=== PATIENT | female | born 1990 | race Caucasian/White ===

== ENCOUNTER 2019-10-20 11:00 | Inpatient (IN) | payer OTHER ==
[2019-10-20] MEDS: ELECTROLYTE-148 SOLN 1,000 ML IV SCH ×2 (12:00→16:55)
[2019-10-20 12:25] LABS: BASO % 0.3 % (0-2.0); HEMATOCRIT 35.1 % (32.4-45.2); HEMOGLOBIN 11.9 GM/dL (10.7-15.3); LYMPH % 13.6 % (8-40); MCH 31.6 pg (25.7-33.7); MCHC 33.9 g/dl (32.0-36.0); MEAN CELL VOLUME 93.2 fl (80-96); MEAN PLT VOLUME 9.4 fl (7.5-11.1); MONO % 4.5 % (3.8-10.2); NEUT % 80.6 % (42.8-82.8); PLATELET COUNT 138 K/MM3 (134-434); RBC 3.77 M/mm3 (3.60-5.2); RDW 13.7 % (11.6-15.6); WHITE BLOOD COUNT 7.3 K/mm3 (4.0-10.0)
[2019-10-20 12:28] VITALS: BMI 27.6
[2019-10-20 12:37] LABS: INR 0.87 (0.83-1.09); PROTHROMBIN TIME (PATIENT) 10.3 SEC (9.7-13.0)
[2019-10-20 12:50] LABS: BLOOD UREA NITROGEN 6.6 mg/dL (7-18); CALCIUM 8.5 mg/dL (8.5-10.1); CREATININE 0.5 mg/dL (0.55-1.3); POTASSIUM 3.7 mmol/L (3.5-5.1)
[2019-10-20] MEDS ORDERED: DINOPROSTONE 10 MG VAGINAL SUPPOSITORY VG ONE (12:54)
--- NOTE | 2019-10-20 13:02 | PN ---
Progress Note (SOAP) - Subjective Chief Complaint: 28yo P1 with at EGA 37wk and intrahepatic cholestasis of , admitted for labor indx. History of Present Illness: complicated by ICP prior x 1 - Current Medications Current Medications: Active Medications Dinoprostone (Cervidil -) 10 mg VG ONCE ONE Stop: 10/20/19 12:55 Parenteral Electrolytes (Plasma-Lyte 148 -) 1,000 mls @ 125 mls/hr IV [facility] - Objective Vital Signs: Vital Signs Temperature 98.2 F 10/20/19 11:00 Pulse Rate 98 H 10/20/19 11:00 Respiratory Rate 17 10/20/19 11:00 Blood Pressure 111/64 10/20/19 11:00 O2 Sat by Pulse Oximetry (%) Constitutional: Yes: Well Nourished, No Distress, Calm Eyes: Yes: WNL, Conjunctiva Clear HENT: Yes: WNL, Atraumatic, Normocephalic Neck: Yes: WNL, Supple, Trachea Midline Cardiovascular: Yes: WNL, Regular Rate and Rhythm Respiratory: Yes: WNL, Regular, CTA Bilaterally Gastrointestinal: Yes: WNL, Normal Bowel Sounds, Soft ...Rectal Exam: Yes: Deferred Genitourinary: Yes: WNL Musculoskeletal: Yes: WNL Extremities: Yes: WNL Peripheral Pulses WNL: Yes Edema: No Integumentary: Yes: WNL Neurological: Yes: WNL, Alert, Oriented ...Motor Strength: Yes: WNL Psychiatric: Yes: WNL, Alert, Oriented Additional Findings/Remarks: tracing Category I, no decels, moderate variability, no ctx's. Adequate gynecoid pelvimetry Cervical exam= L/C/P EFW ~6.5 lbs Labs Lab Results: CBCD WBC 7.3 K/mm3 (4.0-10.0) 10/20/19 11:14 RBC 3.77 M/mm3 (3.60-5.2) 10/20/19 11:14 Hgb 11.9 GM/dL (10.7-15.3) 10/20/19 11:14 Hct 35.1 % (32.4-45.2) 10/20/19 11:14 MCV 93.2 fl (80-96) 10/20/19 11:14 MCHC 33.9 g/dl (32.0-36.0) 10/20/19 11:14 RDW 13.7 % (11.6-15.6) 10/20/19 11:14 Plt Count 138 K/MM3 (134-434) 10/20/19 11:14 MPV 9.4 fl (7.5-11.1) 10/20/19 11:14 CMP Sodium 139 mmol/L (136-145) 10/20/19 11:14 Potassium 3.7 mmol/L (3.5-5.1) 10/20/19 11:14 Chloride 106 mmol/L (98-107) 10/20/19 11:14 Carbon Dioxide 25 mmol/L (21-32) 10/20/19 11:14 Anion Gap 8 MMOL/L (8-16) 10/20/19 11:14 BUN 6.6 mg/dL (7-18) L 10/20/19 11:14 Creatinine 0.5 mg/dL (0.55-1.3) L 10/20/19 11:14 Random Glucose 101 mg/dL (74-106) 10/20/19 11:14 Calcium 8.5 mg/dL (8.5-10.1) 10/20/19 11:14 Imaging - Results Ultrasound: Report Reviewed Assessment/Plan 28yo P1 with at EGA 37wk and intrahepatic cholestasis of , admitted for labor indx. Fetus with Category I tracing. Pt is not in labor. We discussed tx options and risks, benefits, alternatives. Plan to proceed with Cervidil cervical ripenning, followed by pitocin if not in labor.
[2019-10-20] MEDS ORDERED: BUTORPHANOL TARTRATE 1 MG/ML VIAL IVPB ONE (22:00)
[2019-10-20] MEDS ORDERED: PROMETHAZINE HCL 25 MG/1 ML VIAL IVPB ONE (22:00)
[2019-10-20] MEDS ORDERED: BUTORPHANOL TARTRATE 1 MG/ML VIAL ONE ×2 (22:15)
[2019-10-20] MEDS ORDERED: PROMETHAZINE HCL 25 MG/1 ML VIAL ONE (22:15)
--- NOTE | 2019-10-20 23:52 | HP ---
Past Medical History - Primary Care Physician PCP:: Shakila Lynch - Admission Chief Complaint: 28yo P1 @ 37wks with Cholestasis of . +FM, no VB, no LOF History of Present Illness: 1. Rubella borderline immune - for vaccination PP 2. 2014 Chlamydia - negative test in 3. Cholestasis of on Actigal 4. Flu shot declined 5. TDap recived 6. GBS neg no need for prophylaxis 7. no h/o HSV History Source: Patient Limitations to Obtaining History: No Limitations - Past Medical History ...: 2 ...Para: 1 ...Term: 1 ( x 1 - 6.13lb) ...: 0 ...Spon : 0 ...Induced : 0 ...Multiple Gestation: 0 ...LMP: 02/03/19 ... Weeks Gestation by Dates: 37.0 ...EDC by Dates: 11/10/19 ...EDC by Sono: 11/10/19 - Past Surgical History Past Surgical History: Yes: None Hx Myomectomy: No Hx Transabdominal Cerclage: No - Smoking History Smoking history: Never smoked Have you smoked in the past 12 months: No Aproximately how many cigarettes per day: 1 - Alcohol/Substance Use Hx Alcohol Use: No History of Substance Use: reports: None - Social History History of Recent Travel: No Home Medications - Allergies Allergies/Adverse Reactions: Allergies Allergy/AdvReac Type Severity Reaction Status Date / Time No Known Allergies Allergy Verified 10/20/19 12:30 - Home Medications Home Medications: Ambulatory Orders Vits96/Iron Fum/Folic [ Tablet] 1 tab PO DAILY 10/20/19 Ursodiol [Actigal -] 300 mg PO BID 10/20/19 Review of Systems - Review of Systems Constitutional: reports: No Symptoms Eyes: reports: No Symptoms HENT: reports: No Symptoms Neck: reports: No Symptoms Cardiovascular: reports: No Symptoms Respiratory: reports: No Symptoms Gastrointestinal: reports: No Symptoms Genitourinary: reports: No Symptoms Breasts: reports: No Symptoms Reported Musculoskeletal: reports: No Symptoms Integumentary: reports: No Symptoms Neurological: reports: No Symptoms Endocrine: reports: No Symptoms Hematology/Lymphatic: reports: No Symptoms Psychiatric: reports: No Symptoms Physical Exam - Maternity Vital Signs: Vital Signs Temperature 98.6 F 10/20/19 22:00 Pulse Rate 84 10/20/19 23:00 Respiratory Rate 20 10/20/19 23:00 Blood Pressure 104/52 L 10/20/19 23:00 O2 Sat by Pulse Oximetry (%) Constitutional: Yes: Well Nourished, No Distress, Calm Eyes: Yes: WNL, Conjunctiva Clear HENT: Yes: WNL, Atraumatic Neck: Yes: WNL, Supple, Trachea Midline Cardiovascular: Yes: WNL, Regular Rate and Rhythm Lungs: Clear to auscultation Breast(s): Yes: WNL - Abdominal Exam/OB Fundal Height: 37 (EFW 6.0lb) Number of Fetuses: Single Presentation: Vertex Contractions: Yes Regularity: Irritability Intensity: Mild Monitor Mode: External Heart Rate Location: Midline Category: I Accelerations: Uniform Decelerations: None - Vaginal Exam/OB Vaginal Bleediing: No Speculum Exam: No Dilatation (cm): 2 Effacement (%): none Amniotic Membrane Status: Intact Station: -3 - Physical Exam Musculoskeletal: Yes: WNL Extremities: Yes: WNL Edema: No Integumentary: Yes: WNL ...Motor Strength: WNL Psychiatric: Yes: WNL, Alert, Oriented - Labs Lab Results: CBC, BMP 10/20/19 11:14 10/20/19 11:14 Assessment/Plan 28yo P1 @ 37.1 wks with Cholestasis of IOL at term Admit to L&D IVFF, NPO, labs start IOL with Cervidil, since cervix is currently unfavorable to start Pitocin MF status reassuring Adequate pelvis EFW 6.0lb anticipate
[2019-10-21] MEDS ORDERED: OXYTOCIN 30 UNITS in 0.9% NS 30 UNIT/500 ML INFUS.BAG IVPB ONE (01:10)
[2019-10-21] MEDS ORDERED: OXYTOCIN 30 UNITS in 0.9% NS 30 UNIT/500 ML INFUS.BAG IVPB SCH (02:00)
--- NOTE | 2019-10-21 04:40 | PN ---
Progress Note, Labor Vaginal Exam #1 Labor Exam Date: 10/21/19 Labor Exam Time: 05:15 Heart Rate (range): 150 Dilatation: 4-5cm Effacement (%): 50% Amniotic Membrane Status: Intact Presentation: Vertex/Position Station: -3 Remarks: AROM to expedite IOL, clear fluid MF status reassuring
[2019-10-21] MEDS ORDERED: PROMETHAZINE HCL 25 MG/1 ML VIAL IVPUSH ONE (05:00)
[2019-10-21] MEDS ORDERED: BUTORPHANOL TARTRATE 1 MG/ML VIAL IVPUSH ONE (05:00)
[2019-10-21] MEDS ORDERED: PROMETHAZINE HCL 25 MG/1 ML VIAL IVPB ONE (05:00)
[2019-10-21] MEDS ORDERED: BUTORPHANOL TARTRATE 1 MG/ML VIAL ONE ×2 (05:01)
[2019-10-21] MEDS ORDERED: PROMETHAZINE HCL 25 MG/1 ML VIAL ONE (05:01)
[2019-10-21] MEDS ORDERED: OXYTOCIN 20 UNITS in 0.9% NS 20 UNIT/1,000 ML INFUS.BAG IV ONE (06:31)
[2019-10-21] MEDS: OXYTOCIN 20 UNITS in 0.9% NS 20 UNIT/1,000 ML INFUS.BAG IV SCH ×2 (07:00→16:00)
[2019-10-21] MEDS ORDERED: BENZOCAINE 20% 57 GM BOTTLE TP PRN (07:08)
[2019-10-21] MEDS ORDERED: METHYLERGONOVINE MALEATE 0.2 MG/1 ML AMP IM PRN (07:08)
[2019-10-21] MEDS ORDERED: BISACODYL 10 MG SUPP.RECT RC PRN (07:08)
[2019-10-21] MEDS ORDERED: BENZOCAINE 28 GM HEMORRHOIDAL OINTMENT TP PRN (07:08)
[2019-10-21] MEDS ORDERED: WITCH HAZEL 50% (TUCKS) 40 PAD/JAR PAD TP PRN (07:08)
--- NOTE | 2019-10-21 07:18 | PN ---
Delivery - Delivery Vaginal Delivery: No Problems Type of Anesthesia: Local Episiotomy/Laceration: Periurethral Extnsion/lac (R labial tear closed with 3 interrupted sutures L periureteral teat closed with one) EBL (cc): 300 Delivery, Single - Stages of Labor Date 1st Stage Initiatied: 10/20/19 Time 1st Stage Initiated: 19:00 Date 2nd Stage Initiated: 10/21/19 Time 2nd Stage Initiated: 06:30 Date of Delivery: 10/21/19 Time of Delivery: 06:40 Date Placenta Delivered: 10/21/19 Time Placenta Delivered: 06:45 Placenta: Yes: Spontaneous - Condition of Cephalometric Technician/Latexer Present: Yes Name: Rachelle Centeno Gender: Male Weight: 7 lb 1 oz Position: Left, OA - 1 Minute Total Score: 9 5 Minutes Total Score: 9 - [place] Feeding Plan Initial Plan: Exclusive throughout hospitalization Remarks - Remarks Remarks: Uncomplicated vaginal delivery of a boy infant, head and shoulders over intact perineum R labial and small L parauretheral tears noted and repaired with interrupted sutures 2-0 chromic Mother and baby stable in L&D
[2019-10-21] MEDS: FERROUS SO4 325 MG TABLET (FP) PO SCH ×2 (09:38→17:48)
[2019-10-21] MEDS: PRENATAL VITAMINS W/ FOLIC ACID TABLET (FP) PO SCH (10:57)
[2019-10-21] MEDS: IBUPROFEN 600 MG TABLET (FP) PO PRN ×2 (14:07→17:48)
[2019-10-21] MEDS: ACETAMINOPHEN 325 MG TABLET (FP) PO PRN ×2 (14:08→17:48)
[2019-10-22] MEDS: ACETAMINOPHEN 325 MG TABLET (FP) PO PRN ×2 (05:53→17:17)
[2019-10-22] MEDS: IBUPROFEN 600 MG TABLET (FP) PO PRN ×2 (05:53→17:16)
--- NOTE | 2019-10-22 08:28 | PN ---
Post Progress Note - Subjective Subjective: Patient without acute complaints. Reports tolerating oral intake without nausea or vomiting. Ambulating without dizziness. Denies fevers or chills. Pain well controlled with oral pain medication. Pumping/breast feeding without issue. Passing flatus, no BM. Post Day: 1 Type of Delivery: Vital Signs: Vital Signs Temperature 98.4 F 10/22/19 06:00 Pulse Rate 85 10/22/19 06:00 Respiratory Rate 20 10/22/19 06:00 Blood Pressure 106/62 10/22/19 06:00 O2 Sat by Pulse Oximetry (%) 97 10/21/19 08:00 Breast Exam: Yes: Soft Uterus: Yes: Fundus Firm, Fundus below umbilicus, Non-tender Abdomen/GI: Yes: Abdomen soft, Passing flatus, Tolerating PO Lochia: Yes: Rubra Lochia, amount: Small Extremities: Yes: Calves non-tender Perineum: Yes: Laceration (repair intact) Activity: Ambulating - Labs Labs: CBC WBC 7.3 K/mm3 (4.0-10.0) 10/20/19 11:14 RBC 3.77 M/mm3 (3.60-5.2) 10/20/19 11:14 Hgb 11.9 GM/dL (10.7-15.3) 10/20/19 11:14 Hct 35.1 % (32.4-45.2) 10/20/19 11:14 MCV 93.2 fl (80-96) 10/20/19 11:14 MCH 31.6 pg (25.7-33.7) 10/20/19 11:14 MCHC 33.9 g/dl (32.0-36.0) 10/20/19 11:14 RDW 13.7 % (11.6-15.6) 10/20/19 11:14 Plt Count 138 K/MM3 (134-434) 10/20/19 11:14 MPV 9.4 fl (7.5-11.1) 10/20/19 11:14 Absolute Neuts (auto) 5.9 K/mm3 (1.5-8.0) 10/20/19 11:14 Neutrophils % 80.6 % (42.8-82.8) 10/20/19 11:14 Lymphocytes % 13.6 % (8-40) 10/20/19 11:14 Monocytes % 4.5 % (3.8-10.2) 10/20/19 11:14 Eosinophils % 1.0 % (0-4.5) 10/20/19 11:14 Basophils % 0.3 % (0-2.0) 10/20/19 11:14 Nucleated RBC % 0 % (0-0) 10/20/19 11:14 Assessment/Plan 28yo P2 s/p , doing well stable, afebrile. Asymptomatic for anemia. care instructions reviewed. Continue routine care. Ambulation encouraged Discharge instruction reviewed.
--- NOTE | 2019-10-22 08:30 | DS ---
Physical Exam-RADIO INTERFERENCE TROUBLE SHOOTER Vital Signs: Vital Signs Temperature 98.4 F 10/22/19 06:00 Pulse Rate 85 10/22/19 06:00 Respiratory Rate 20 10/22/19 06:00 Blood Pressure 106/62 10/22/19 06:00 O2 Sat by Pulse Oximetry (%) 97 10/21/19 08:00 Constitutional: Yes: Well Nourished, No Distress, Calm Eyes: Yes: WNL, Conjunctiva Clear, EOM Intact HENT: Yes: WNL, Atraumatic, Normocephalic Neck: Yes: WNL, Supple, Trachea Midline Cardiovascular: Yes: WNL, Regular Rate and Rhythm Respiratory: Yes: WNL, Regular, CTA Bilaterally Gastrointestinal: Yes: WNL, Normal Bowel Sounds, Soft ...Rectal Exam: Yes: Deferred Renal/: Yes: WNL ....Post : Yes: Uterus firm, Uterus non-tender, Slight lochia rubra Breast(s): Yes: WNL Musculoskeletal: Yes: WNL Extremities: Yes: WNL Edema: Yes Edema: LLE: Trace, RLE: Trace Integumentary: Yes: WNL Neurological: Yes: WNL, Alert, Oriented ...Motor Strength: WNL Psychiatric: Yes: WNL, Alert, Oriented Labs: CBC, BMP 10/20/19 11:14 10/20/19 11:14 Delivery - Delivery Vaginal Delivery: No Problems Type of Anesthesia: Local Episiotomy/Laceration: Periurethral Extnsion/lac (R labial tear closed with 3 interrupted sutures L periureteral teat closed with one) EBL (cc): 300 Delivery, Single - Stages of Labor Date 1st Stage Initiatied: 10/20/19 Time 1st Stage Initiated: 19:00 Date 2nd Stage Initiated: 10/21/19 Time 2nd Stage Initiated: 06:30 Date of Delivery: 10/21/19 Time of Delivery: 06:40 Time Placenta Delivered: 06:45 Placenta: Yes: Spontaneous - Condition of Traffic Representative/Java Programmer Analyst Present: Yes Name: Rachelle Centeno Gender: Male Weight: 3.203 kg Position: Left, OA Total Hours ROM (Hrs/Mins): 2h20m - 1 Minute Total Score: 9 5 Minutes Total Score: 9 - [place] Feeding Plan Initial Plan: Exclusive throughout hospitalization Benefits of Exclusively reinforced: Yes Discharge Summary Problems reviewed: Yes Reason For Visit: INDUCTION OF LABOR Intrahepatic cholestasis of Procedures: Principal: Hospital Course: Normal recovery Condition: Good - Instructions Diet, Activity, Other Instructions: Physical activity Resume your normal everyday activity as tolerated no heavy lifting or exercise until seen by your surgeon. You may walk unlimited jacklyn of and climb stairs. You may resume driving the car when you feel safe and comfortable behind the wheel. No sexual activity as instructed. Wound care If you have a bandage, leave it on, and keep dry for 48-72 hours. After that time discard the outer bandage. If they are tapes on the skin under the out of bandage leave them in place. They will peel off in the next 7 to 10 days. Do Not Peel them off. You may shower the day after surgery. If there are tapes present on the skin, you may shower over them. Diet There are no dietary restrictions. Eat healthy, high-fiber foods. Drink 6 to 8 glasses of liquid each day. This will assist in keeping your bowels are regular. Pain management You may take Tylenol or acetaminophen or Ibuprofen (for example, Motrin, Advil etc.) from my pain prescription medication is ordered should be taken as prescribed for moderate to severe pain. Call MD for any of the following: Severe pain not relieved by medication Fever of 101 or higher Excessive bleeding or drainage on dressing Inability to urinate Referrals: Shakila Lynch MD [Staff Physician] - Disposition: HOME - Home Medications Comprehensive Discharge Medication List: Ambulatory Orders Vits96/Iron Fum/Folic [ Tablet] 1 tab PO DAILY 10/20/19 Ursodiol [Actigal -] 300 mg PO BID 10/20/19 Prescription Drug Monitoring Program (I-STOP) results: I-STOP not reviewed
[2019-10-22] MEDS: FERROUS SO4 325 MG TABLET (FP) PO SCH ×2 (08:33→17:16)
[2019-10-22] MEDS: PRENATAL VITAMINS W/ FOLIC ACID TABLET (FP) PO SCH (09:24)
[2019-10-22 11:00] LABS: BASO % 0.3 % (0-2.0); EOS % 1.4 % (0-4.5); HEMATOCRIT 31.2 % (32.4-45.2); HEMOGLOBIN 10.9 GM/dL (10.7-15.3); LYMPH % 13.1 % (8-40); MCH 32.3 pg (25.7-33.7); MCHC 34.9 g/dl (32.0-36.0); MEAN CELL VOLUME 92.5 fl (80-96); MEAN PLT VOLUME 9.4 fl (7.5-11.1); MONO % 3.8 % (3.8-10.2); NEUT % 81.4 % (42.8-82.8); PLATELET COUNT 133 K/MM3 (134-434); RBC 3.37 M/mm3 (3.60-5.2); RDW 13.6 % (11.6-15.6); WHITE BLOOD COUNT 8.6 K/mm3 (4.0-10.0)
[2019-10-22] MEDS ORDERED: SENNOSIDES/DOCUSATE COMBO (SENNA PLUS) TABLET (UD) PO PRN (22:00)
--- NOTE | 2019-10-23 04:43 | PN ---
Post Progress Note - Subjective Subjective: Patient without acute complaints. Reports tolerating oral intake without nausea or vomiting. Ambulating without dizziness. Denies fevers or chills. Pain well controlled with oral pain medication. without difficulty. Passing flatus. Post Day: 2 Type of Delivery: Vital Signs: Vital Signs Temperature 97.7 F 10/22/19 21:45 Pulse Rate 81 10/22/19 21:45 Respiratory Rate 20 10/22/19 21:45 Blood Pressure 127/74 10/22/19 21:45 O2 Sat by Pulse Oximetry (%) 97 10/21/19 08:00 Breast Exam: Yes: Soft Uterus: Yes: Fundus Firm Abdomen/GI: Yes: Abdomen soft, Passing flatus, Tolerating PO. No: Abdominal Distention, Tender Lochia: Yes: Rubra Lochia, amount: Small Extremities: Yes: Calves non-tender, Edema (trace) Activity: Ambulating - Labs Labs: CBC WBC 8.6 K/mm3 (4.0-10.0) 10/22/19 10:17 RBC 3.37 M/mm3 (3.60-5.2) L 10/22/19 10:17 Hgb 10.9 GM/dL (10.7-15.3) 10/22/19 10:17 Hct 31.2 % (32.4-45.2) L 10/22/19 10:17 MCV 92.5 fl (80-96) 10/22/19 10:17 MCH 32.3 pg (25.7-33.7) 10/22/19 10:17 MCHC 34.9 g/dl (32.0-36.0) 10/22/19 10:17 RDW 13.6 % (11.6-15.6) 10/22/19 10:17 Plt Count 133 K/MM3 (134-434) L 10/22/19 10:17 MPV 9.4 fl (7.5-11.1) 10/22/19 10:17 Absolute Neuts (auto) 7.0 K/mm3 (1.5-8.0) 10/22/19 10:17 Neutrophils % 81.4 % (42.8-82.8) 10/22/19 10:17 Lymphocytes % 13.1 % (8-40) 10/22/19 10:17 Monocytes % 3.8 % (3.8-10.2) 10/22/19 10:17 Eosinophils % 1.4 % (0-4.5) 10/22/19 10:17 Basophils % 0.3 % (0-2.0) 10/22/19 10:17 Nucleated RBC % 0 % (0-0) 10/22/19 10:17 Assessment/Plan 28 yo PPD # 2 s/p , afebrile, vital signs stable, doing well 1. Patient stable for discharge home today. 2. Patient encouraged to contact MD for: - Severe pain not controlled by oral pain medication - Fevers or chills - Nausea or vomiting, intolerance of oral intake 3. Patient to follow up in office in 4-6 weeks for visit
[2019-10-23] MEDS: IBUPROFEN 600 MG TABLET (FP) PO PRN (08:02)
[2019-10-23] MEDS: ACETAMINOPHEN 325 MG TABLET (FP) PO PRN (08:02)
[2019-10-23] MEDS: FERROUS SO4 325 MG TABLET (FP) PO SCH (08:02)
[2019-10-23 08:58] VITALS: BP 127/81; PULSE 82; TEMP 98.4
[2019-10-23] MEDS: PRENATAL VITAMINS W/ FOLIC ACID TABLET (FP) PO SCH (10:00)
== END 2019-10-23 12:52 | disposition home or self-care (01) | DRG 807 ==
LOC: JLDR 11:00 → J3W 10-21 10:31
PROVIDERS: ADMIT Obstetrics & Gynecology; ATTEND Obstetrics & Gynecology
PROC: 10E0XZZ Delivery of Products of Conception, External Approach (ICD-10-PCS; principal; 2019-10-21)
PROC: 0W8NXZZ Division of Female Perineum, External Approach (ICD-10-PCS; 2019-10-21)
DX: O80 Encounter for full-term uncomplicated delivery (principal); Z37.0 Single live birth; Z3A.37 37 weeks gestation of pregnancy
CPT/HCPCS: 36415; 36600; 59409; 80048; 82803; 85025; 85610; 85730; 86593; 86850; 86900; 86901